=== PATIENT | female | born 1945 | race Caucasian/White ===

== ENCOUNTER 2025-07-17 08:43 | Outpatient (REF) | payer OTHER, SELFPAY | END 2025-07-17 08:44 | disposition home or self-care (01) | LOC: HO.LNP 08:43 | PROVIDERS: PCP Internal Medicine; Visit Provider Obstetrics & Gynecology | DX: N95.0 Postmenopausal bleeding (principal); Z11.51 Encounter for screening for human papillomavirus (HPV) | CPT/HCPCS: 87626; 88175 ==

== ENCOUNTER 2025-07-17 08:43 | Outpatient (AMB) | payer OTHER, SELFPAY ==
--- OUTSIDE RECORDS SUMMARY | 2025-07-17 08:59 | XMS_ITS ---
Author Name [facility] [[email or web address]]P Organization Unknown Care Team Organization Name Specialty Phone Email Start Date End Da te [facility] Ovidio Leung DO Primary Care 09/29/202206/22
--- OUTSIDE RECORDS SUMMARY | 2025-07-17 08:59 | XMS_ITS | Clinical Summary ---
Author Organization [address] Address [address] [place], [place] [address] Phone Care Team Providers Care Caddy Name Role Phone Elizabeth Mcneal MD Primary Care Provider [phone] Allergies No known active allergies Medications lisinopriL (PRINIVIL,ZESTR IL) 20 mg tabletIndicatio ns:Essential hypertension, benign TAKE 1 TABLET (20 MG TOTAL) BY MOUTH ONE TIME EACH DAY 90 tablet 1 06/18/20 25 Active amLODIPine (NORVASC) 5 mg tablet Take 1 tablet (5 mg total) by mouth 1 (one) time each day. 90 tablet 1 06/20/20 25 Active predniSONE (DELTASONE) 20 mg tablet Take 60 mg PO daily for 3 days, then take 40 mg PO daily for 3 days, then 20 mg PO daily for 3 days, then stop 18 tablet 06/20/20 25 Active acetaminophen (Tylenol 8 Hour) 650 mg 8 hr tablet Take 1 tablet (650 mg total) by mouth every 8 (eight) hours if needed for mild pain. Do not crush, chew, or split. 90 tablet 06/20/20 25 Active cyclobenzaprine (FLEXERIL) 5 mg tablet Take 1 tablet (5 mg total) by mouth at bedtime as needed for muscle spasms. 30 tablet 06/20/20 25 025 Active mirtazapine (REMERON) 7.5 mg tabletIndicatio ns:Insomnia, unspecified,Anx iety disorder, unspecified TAKE 1 TABLET BY MOUTH EVERY DAY AT BEDTIME NEEDED FOR INSOMNIA 90 tablet 1 07/10/20 25 Active amLODIPine (NORVASC) 5 mg tablet TAKE 1 TABLET BY MOUTH EVERY DAY 90 tablet 1 12/19/19 25 025 Discontinued(Re order) lisinopriL (PRINIVIL,ZESTR IL) 20 mg tabletIndicatio ns:Essential hypertension, benign Take 1 tablet (20 mg total) by mouth 1 (one) time each day. 90 tablet 1 12/21/19 025 Discontinued mirtazapine (REMERON) 7.5 mg tabletIndicatio ns:Insomnia, unspecified,Anx iety disorder, unspecified Take 1 tablet (7.5 mg total) by mouth at bedtime as needed (insomnia). 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 Remeron was discontinued as patient stopped taking this medication in October 2024. At this point, suicidal ideation does not appear to be a concern, therefore hospitalization will not be necessary and this patient may be treated on an outpatient basis. The patient was instructed to call immediately should the patient experience thoughts of suicide. Patient was advised to call immediately should depression symptoms worsen or should the patient experience suicidal ideation. Diastolic dysfunction 01/30/2019 Overview (10/23/2024): Seen on echo 01/2019 Hypercholesterolemia 01/07/2017 Assessment & Plan (12/27/2024 9:09 AM EST): Last LDL 128. Cardiovascular risk and specific lipid/LDL goals reviewed. I discussed in context of patient risks of coronary artery disease which is associated with total cholesterol, high LDL and low HDL cholesterol. It was also discussed in the context of patient's family history CAD and [place]. I discussed Current concept linking hypercholesteremia with occlusive vascular disease. Discussed the current availability of medications to treat hypercholesteremia, and their potential side effects. The patient is informed that this type of drug is usually highly effective to lower LDL cholesterol and is usually very well tolerated. I will recheck Lipid profile today. If lipid levels are continue to be elevated patient will consider statin at that time. Orders: Lipid panel with reflex to direct LDL; Future Osteopenia 02/22/2013 Overview (10/23/2024): Bone density 02/2013 Macular degeneration 10/06/2011 Essential hypertension, benign 09/13/2006 Overview (10/23/2024): Her machine higher than our reading on 02/13/08 Assessment & Plan (12/27/2024 9:09 AM EST): The goal of therapy is for systolic BP to be <140, diastolic BP <90. Robyn is control. Patient is to Continue amlodipine 5 mg daily and lisinopril 20 mg daily.. Review medication, side effects ans potential future medication changes. She is to call the office if blood pressure more than 140/90, more than a couple of times. Patient is recommended lifestyle changes including 2 g sodium/Dash Diet and regular exercise as tolerated. Orders: lisinopriL (PRINIVIL,ZESTRIL) 20 mg tablet; Take 1 tablet (20 mg total) by mouth 1 (one) time each day. Basic metabolic panel; Future Encounters Date Type Department Care Team Description 06/20/2025 2:45 PM EDT - 06/20/2025 11:59 PM EDT Hospital Encounter [address] [phone] Routine general medical examination at a health care facility; Neck pain Discharge Disposition: Home or Self Care 06/20/2025 2:00 PM EDT Office Visit Adult Medicine [address] [phone] Elizabeth Mcneal MD Routine general medical examination at a health care facility (Primary Dx); Osteopenia, unspecified location; Primary hypertension; Hyperlipidemia, unspecified hyperlipidemia type; Postmenopausal bleeding; Neck pain from Last 3 Months Immunizations Name Administration Dates Next Due Human Rabies, Human Diploid Cell Culture, (Imovax) 07/26/2022,07/19/2022,07/15/2022,07/12 Influenza trivalent, 0.5mL ( Fluad) 65yo and older 08/07/2024,08/20/2023,08/24/2022,08/04,07/09/2020,09/02/2019,09/06/2018 ,08/31/2017 Influenza trivalent, 0.5mL ( Fluzone High-dose) 65yo and older 08/07/2024,07/09/2020,09/02/2019,09/06,08/31/2017,09/14/2016 Influenza trivalent, 0.5mL, preservative free (Fluarix; FluLaval; Fluzone) ages 6mo and older (Afluria) 3 years and older 11/06/2010,08/30/2008 Pfizer (ages 12 & older) Biv alent, COVID-19 08/23/2022 Pfizer SARS-CoV-2 COVID-19, mRNA, LNP-S, preservative free 10/28/2023,08/22/2021 Pneumococcal conjugate 13 va lent (Prevnar 13, PCV13) 2mo and older 02/18/2015 Pneumococcal polysaccharide 23 valent (Pneumovax 23) 2yo and older 02/15/2013 Pneumococcal, Unspecified 07/03/2020 RSV, bivalent, protein subun it RSVpreF, 0.5mL, Preservative Free (Arexvy) 60yo and older 10/11/2023 Respiratory syncytial virus (RSV) vaccine, unspecified 08/05/2023 Respiratory syncytial virus (RSV), unspecified 10/11/2023 Td, Unspecified 07/15/2005 Tdap Tetanus diptheria acell ular pertussis (Boostrix; Adacel) 7yo and older 07/12/2022,06/11/2015 Zoster Live 07/12/2013 Zoster recombinant (Shingrix ) 19yo and older 03/24/2021,12/05/2020 Surgical History Surgery Date Site/Laterality Comments TONSILLECTOMY PROCEDURE: HISTORICAL TONSILLECTOMY BREAST BIOPSY many yrs. ago Right PROCEDURE: BX BREAST; PERC NEEDLE CORE W/IMAG GUID; COMMENT: benign-rt. Medical History Medical History Date Comments Essential hypertension, benign 09/13/2006 D X:Essential hypertension, benign Murmur, heart DX:Murmur, heart Depression DX:Depression Anxiety state DX:Anxiety state Family History Medical History Relation Name Comments Heart failure Father Hypertension Father Other Dermatological Disorders Father Whole back filled with moles Stroke Father Diabetes Mother Heart failure Mother Hypertension Mother Breast cancer Neg Hx Relation Name Status Comments Father (Age 94) Mother (Age 90) Social History Tobacco Use Types Packs/Day Years Used Date Smoking Tobacco: Never Smokeless Tobacco: Never Tobacco Cessation:Counseling Given: Not Answered Alcohol Use Standard Drinks/Week Comments Yes 0 (1 standard drink = 0.6 oz pur e alcohol) Housing Instability Answer Date Recorde d Are you worried that in the next 2 months you may not have stable housing? No 06/15/2025 Food Access & Nutrition Answer Date Rec orded Do you have access to a vari ety of food including fruits and vegetables? Yes 06/15/2025 Access to Healthcare Answer Date Record ed Within the last 3 months, ho w many times did you visit the emergency department for your medical care? 0 06/15/2025 Health Literacy Answer Date Recorded How often do you need to hav e someone help you when you read instructions, pamphlets, or other written material from your doctor or pharmacy? Never 06/15/2025 Caregiver: How often do you need to have someone help you when you read instructions, pamphlets, or other written material from your doctor or pharmacy? Not on file 06/15/2025 Financial Risk Answer Date Recorded How hard is it for you to pa y for the very basics like food, housing, medical care, and air conditioning / heating? Very hard 06/15/2025 Transportation Answer Date Recorded Has the lack of transportati on kept you from meetings, work, or from getting things needed for daily living? No Has the lack of transportati on kept you from medical appointments or from getting medications? No 06/15/2025 Social Isolation Answer Date Recorded How often do you feel lonely or isolated from th ose around you? Never 06/15/2025 Food Risk Answer Date Recorded Within the past 12 months we worried whether our food would run out before we got money to buy more. Never true 06/15/2025 Within the past 12 months th e food we bought just didn't last and we didn't have money to get more. Never true 06/15/2025 Dependent Care Answer Date Recorded Do you need help finding or paying for care for your loved ones. For example, school childcare attendant or elderly care for an older adult? No 06/15/2025 Education Answer Date Recorded Do you think completing more education or training, like finishing a GED, going to college, or learning a trade, would be helpful for you? No 06/15/2025 Employment and Income Answer Date Recor ded During the last four weeks, have you been actively looking for work? No 06/15/2025 Living Situation Answer Date Recorded What is your living situation? 0 06/15/2025 Comments No Sex and Gender Information Value Date Recorded Sex Assigned at Not on file Legal Sex Female 9:27 AM EST Gender Identity Not on file Sexual Orientation Not on file Obstetrics History Para Term AB IAB SAB Ectopic Multiple Livin g Live Births 1 1 1 1 Date Outcome GA Total Labor Labor/2nd/3rd Weight Sex Type Anes PTL Ju A1 A5 Name Clin Term Last Filed Vital Signs Vital Sign Reading Time Taken Comments Blood Pressure 162/70 06/20/2025 1:41 PM EDT Pulse 88 06/20/2025 1:41 PM EDT Temperature 36.6 C (97.8 F) 06/20/2025 1:41 PM EDT Respiratory Rate 20 04/02/2025 2:16 PM EDT Oxygen Saturation - - Inhaled Oxygen Concentration - - Weight 83.9 kg (185 lb) 06/20/2025 1:41 PM EDT Height 160 cm (5' 3 ) 06/20/2025 1:41 PM EDT Body Mass Index 32.77 06/20/2025 1:41 PM EDT Plan of Treatment Upcoming Encounters Date Type Department Care Team (Late st Contact Info) Description 12/25/2025 9:30 AM EST Office Visit Adult [address] [phone] Elizabeth Mcneal MD [address] [place] [id number] 06/27/2026 3:00 PM EDT Office Visit Adult [address] [phone] Elizabeth Mcneal MD [address] [place] [address] Health Maintenance Due Date Last Done Comments Influenza Vaccine (#1) 2025 , 08/07/2024, 08/20/2023, Additional history exists Hypertension/CHF/CAD Annual BMP Blood Test 01/01/2026 01/01/2025, 04/20/2024, 04/20/2024 Social Influencers of Health Screening 06/15/2026 06/15/2025 Falls Risk Assessment 06/20/2026 06/20/2025 Medicare Annual Wellness Visit 06/20/2026 06/20/2025 Osteoporosis Screening (Bone Density Screening) 07/31/2029 07/31/2024, 08/26/2018 Cholesterol Screening (Lipid Panel) 01/01/2030 01/01/2025, 11/25/2023 DTaP,Tdap,and Td Vaccines (4 - Td or Tdap) 07/12/2032 07/12/2022, 06/11/2015, 07/15/2005 Hepatitis C Screening Completed 06/13/2015 Pneumococcal Vaccine: 50+ Years Completed 07/03/2020, 02/18/2015, 02/15/2013 Zoster Vaccines Completed 03/24/2021, 11/22, 07/12/2013 Colorectal Cancer Screening: Stool Based Tests (FOBT/FIT) Discontinued 03/09/2023 RSV Immunization Adult Patients Completed 10/11/2023, 10/11/2023, 08/05/2023 RSV Immunization Patients Under 20 months Aged Out 10/11/2023, 08/05/2023 No longer eligibl e based on patient's age to complete this topic COVID-19 Vaccine Discontinued 10/28/2023, 12/2021, 08/22/2021, Additional history exists Depression Screening Completed 06/15/2025 HIB Vaccines Aged Out No longer eligi ble based on patient's age to complete this topic HPV Vaccines Aged Out No longer eligi ble based on patient's age to complete this topic Hepatitis A Vaccines Aged Out No long er eligible based on patient's age to complete this topic Hepatitis B Vaccines Aged Out No long er eligible based on patient's age to complete this topic IPV Vaccines Aged Out No longer eligi ble based on patient's age to complete this topic MMR Vaccines Aged Out No longer eligi ble based on patient's age to complete this topic Meningococcal ACWY Vaccine Aged Out N o longer eligible based on patient's age to complete this topic Meningococcal B Vaccine Aged Out No l onger eligible based on patient's age to complete this topic Varicella Vaccines Aged Out No longer eligible based on patient's age to complete this topic Procedures Procedure Name Priority Date/Time Associated Diagnosis Comments XR CERVICAL SPINE 4-5 VIEWS Routine 06/20/2025 2:53 PM EDT Routine general medical examination at a [facility] care facility Neck pain BASIC METABOLIC PANEL Routine 01/01/2025 8:40 AM EST Essential hypertension, benign LIPID PANEL WITH REFLEX TO DIRECT LDL Routine 01/01/2025 8:40 AM EST Hypercholesterolemia Encounter for screening for cardiovascular disorders [facility] DEXA AXIAL SKELETON Routine 07/31/2024 8:31 AM EDT Other specified disorders of bone density and structure, other site STOOL BASED TEST Routine 03/09/2023 HEPATITIS C SCREENING Routine 06/13/2015 from Last 3 Months or Most Recently Relevant to Health Maintenance Results * XR Cervical Spine 4-5 Views (06/20/2025 2:53 PM EDT) Anatomical Region Laterality Modality Spine, C-spine Radiographic Cornelia ging 06/21/2025 9:15 AM EDT Impressions 06/21/2025 9:22 AM EDT Degenerative changes as described. Slight retrolisthesis of C5 relative to C4 and C6. -------- FINAL REPORT -------- Dictated By: Sheila Bailey Dictated Date: 06/21/2025 09:15 ET Assigned Physician: Sheila Bailey Reviewed and Electronically Signed By: Sheila Bailey Signed Date: 06/21/2025 09:22 ET Workstation ID: [id number] Transcribed By: Self Edit Transcribed Date: 06/21/2025 09:17 ET Narrative 06/21/2025 9:22 AM EDT CERVICAL SPINE, 4 VIEWS HISTORY: Neck pain. FINDINGS: There is slight retrolisthesis of C5 relative to both C4 and C6. No fracture or dislocation is seen. The paravertebral soft tissues are unremarkable. There is disc space narrowing with endplate spurring at C4-5, C5-C6, and C6-7. There is mild endplate spurring at C2-3 and C3-4. There is bilateral neural foraminal narrowing from osteophytes. There is multilevel facet hypertrophy. Procedure Note Sheila Bailey MD - 06/21/2025 CERVICAL SPINE, 4 VIEWS HISTORY: Neck pain. FINDINGS: There is slight retrolisthesis of C5 relative to both C4 and C6. Nofracture or dislocation is seen. The paravertebral soft tissues areunremarkable. There is disc space narrowing with endplate spurring at C4-5, C5-C6, andC6-7. There is mild endplate spurring at C2-3 and C3-4. There is bilateral neural foraminal narrowing from osteophytes. There is multilevel facet hypertrophy. IMPRESSION: Degenerative changes as described. Slight retrolisthesis of C5 relative to C4 and C6. -------- FINAL REPORT -------- Dictated By: Sheila Bailey Dictated Date: 06/21/2025 09:15 ET Assigned Physician: Sheila Bailey Reviewed and Electronically Signed By: Sheila Bailey Signed Date: 06/21/2025 09:22 ET Workstation ID: [id number] Transcribed By: Self Edit Transcribed Date: 06/21/2025 09:17 ET us Elizabeth Mcneal MD IMG XR PROCEDURES Final Res ult * (ABNORMAL) Lipid panel with reflex to direct LDL (01/01/2025 8:40 AM EST) Cholesterol 211(H) 0 - 200 mg/dL LAB CHEMISTRY METHOD 01/01/2025 12:20 PM EST [facility] Triglycerides 120 0 - 150 mg/dL LAB CHEMISTRY METHOD 01/01/2025 12:20 PM [facility] HDL 64 >=40 mg/dL LAB CHEMISTRY METHOD 01/01/2025 12:20 PM [facility] LDL Calculated 123(H) 0 - 100 mg/dL LAB CHEMISTRY METHOD 01/01/2025 12:20 PM [facility] VLDL Cholesterol Darren 24 mg/dL LAB CHEMISTRY METHOD 01/01/2025 12:20 PM [facility] Non HDL Chol. (LDL+VLDL) 147(H) <145 mg/dL LAB CHEMISTRY METHOD 01/01/2025 12:20 PM [facility] Chol/HDL Ratio 3.3 0.0 - 4.4 LAB CHEMISTRY METHOD 01/01/2025 12:20 PM [facility] Blood Venous blood specimen / Unknown Venipuncture / Unknown 01/01/2025 8:40 AM EST 01/01/2025 8:40 AM EST us Roxane Savage SKI LIFT OPERATOR LAB BLOOD ORDERABLES Final R esult [facility] [address] [place] [address], * Basic metabolic panel (01/01/2025 8:40 AM EST) Sodium 139 133 - 145 mmol/L LAB CHEMISTRY METHOD 01/01/2025 12:19 PM [facility] Potassium 4.5 3.5 - 5.5 mmol/L LAB CHEMISTRY METHOD 01/01/2025 12:19 PM [facility] Chloride 106 96 - 110 mmol/L LAB CHEMISTRY METHOD 01/01/2025 12:19 PM [facility] CO2 27 21 - 32 mmol/L LAB CHEMISTRY METHOD 01/01/2025 12:19 PM [facility] Anion Gap 6 3 - 11 LAB CHEMISTRY METHOD 01/01/2025 12:19 PM [facility] Glucose 95 70 - 100 mg/dL LAB CHEMISTRY METHOD 01/01/2025 12:19 PM [facility] BUN 18 5 - 25 mg/dL LAB CHEMISTRY METHOD 01/01/2025 12:19 PM [facility] Creatinine 0.69 0.50 - 1.10 mg/dL LAB CHEMISTRY METHOD 01/01/2025 12:19 PM [facility] eGFR 90 >=60 mL/min/1. 73m2 LAB CHEMISTRY METHOD 01/01/2025 12:19 PM [facility] Comment:Calculation based on the Chronic Kidney Disease Epidemiology Collaboration (CKD-EPI) equation refit without adjustment for race. BUN/Creatinine Ratio 26.1 LAB CHEMISTRY METHOD 01/01/2025 12:19 PM [facility] Calcium 9.3 8.5 - 10.5 mg/dL LAB CHEMISTRY METHOD 01/01/2025 12:19 PM [facility] Blood Venous blood specimen / Unknown Venipuncture / Unknown 01/01/2025 8:40 AM EST 01/01/2025 8:40 AM EST us Roxane Savage SKI LIFT OPERATOR LAB BLOOD ORDERABLES Final R esult [facility] [address] [place] [address], * TRISTAN DEXA AXIAL SKELETON (07/31/2024 8:31 AM EDT) Anatomical Region Laterality Modality Mammography 07/31/2024 7:39 AM EDT Narrative 07/31/2024 8:31 AM EDT [facility] Diagnostic Imaging Department [address] [place] [address] Patient: ROBYN GOMEZ /Age/Sex: 1945 - 79 - F Unit#: [id number] Location/Status: SPDIMAM/REG CLI Mnemonic/Ordering Site: MAMDEXAAX/SPMAM Ordering Physician: RIN RAGSDALE PA-C Tristan Dexa Axial Skeleton - 07/31/24818 Report Status:Signed HISTORY: The patient is a 79-year-old postmenopausal female with clinical concern for metabolic bone disease. FINDINGS: Dual energy x-ray absorptiometry of the lumbar spine and femurs is performed. The mean bone mineral density at L1-L4 is 1.144 gm/cm2 which is 97% of that of young normals and 110% of that of age matched controls. This yields a T-score of -0.3 and a Z-score of 0.1 and there is therefore no evidence of osteoporosis or osteopenia here. The mean bone mineral density of the femurs bilaterally is 1.040 gm/cm2 which is 103% of that of young normals and 125% of that of age matched controls. This yields a T-score of 0.3 and a Z-score of 1.6 and there is therefore no evidence of osteoporosis or osteopenia here. However, the T-score of the right femoral neck is -1.1 which is diagnostic of osteopenia. IMPRESSION: 1. Osteopenia. 2. FRAX analysis yields a 10-year probability of major osteoporotic fracture of 10.4% and a 10-year probability of hip fracture of 1.8%. Code 09011 Dictating Physician: MAURO HAMMOND MD Electronically Signed by: MAURO HAMMOND MD Dic Date/Time: 07/31/24829 Sign date/Time: 07/31/24830 Procedure Note Mauro Hammond MD - 09/06/2024 [facility] Diagnostic Imaging Department [address] [place] [id number] Patient: ROBYN GOMEZ Amirah Rebolledo/Age/Sex: 1945 79 - F Unit#: [id number] Location/Status: [facility] CLI Mnemonic/Ordering Site: [facility] Ordering Physician: RIN RAGSDALE PA-C Tristan Dexa Axial Skeleton - 07/31/24818 Report Status:Signed HISTORY: The patient is a 79-year-old postmenopausal female withclinical concern for metabolic bone disease. FINDINGS: Dual energy x-ray absorptiometry of the lumbar spine and femursis performed. The mean bone mineral density at L1-L4 is 1.144 gm/cm2 which is97% of that of young normals and 110% of that of age matched controls. Thisyields a T-score of -0.3 and a Z-score of 0.1 and there is therefore no evidenceof osteoporosis or osteopenia here. The mean bone mineral density of the femurs bilaterally is 1.040 gm/xa2vtpul is 103% of that of young normals and 125% of that of age matched controls.This yields a T-score of 0.3 and a Z-score of 1.6 and there is therefore noevidence of osteoporosis or osteopenia here. However, the T-score of the rightfemoral neck is -1.1 which is diagnostic of osteopenia. IMPRESSION: 1. Osteopenia. 2. FRAX analysis yields a 10-year probability of major osteoporoticfracture of 10.4% and a 10-year probability of hip fracture of 1.8%. Code 20181 Dictating Physician: MAURO HAMMOND MD Electronically Signed by: MAURO HAMMOND MD Dic Date/Time: 07/31/24829 Sign date/Time: 07/31/24830 Rin HORNER IMG BI PROCEDURES Fin al Result * Stool Based Tests (FOBT/FIT) (03/09/2023) [facility] Colorectal Cancer Screening: Stool Based Tests No interpretation , abstracted Historical Provider HEALTH MAINTENANCE Final Result * Hepatitis C Screening (06/13/2015) [facility] Hepatitis C Screening abstracted Result [facility] Provider HEALTH MAINTENANCE Final Result from Last 3 Months or Most Recently Relevant to Health Maintenance Insurance [employer] [place] [employer] Care Teams Caddy Relationship Specialty Start Date End Date Elizabeth Mcneal MD [phone] [place] [address] PCP - General Internal Medicine 12/14/24
--- NOTE | 2025-07-17 09:02 | MHC.OFFVIS ---
Vital Signs 07/17/25 09:04 Height 5 ft 3 in Weight 183 lb BMI 32.4 BP 144/80 H Intake Visit Reasons: PMB Control Board Operator Required: No Greenskeeper Head: Greenskeeper Head Present (hilario) Accompanied by: Spouse Allergies bee pollen (bees) Allergy (Mild, Verified 07/17/25 09:05) Swelling Post menopausal: Yes HPI Comments Details: Presenting after 3 episode of vaginal bleeding that started 04/14 recurred in 04/15 and last week. [facility] Medical History Hypertension Social History Household Members: Spouse Housing: House Alcohol intake: current Comment: socially Patient Tobacco Use Status: Never used Tobacco Current occupational status: retired Sexual orientation: Straight/Heterosexual Gender identity: Female Female Reproductive History Menstrual Age of Menarche: 15 control method: none Menopause type: natural Total pregnancies: 1 Full term: 1 History of abnormal pap smear: No History of abnormal mammogram: No Review of Systems Const All systems reviewed & are unremarkable except as noted in HPI and below Physical Exam Vital Signs: Last Vital Signs BP 144/80 H 07/17/25 09:04 BMI result Body Mass Index 32.4 General: Yes no CVA tenderness External Female Exam: normal external appearance and normal appearance of the urethra Speculum Exam - Vagina: normal appearance of the vagina, normal palpation, no lesions and no masses Speculum Exam - Cervix: normal appearance of the cervix, normal palpation, no lesions, no masses and nontender Bimanual exam- vagina & uterus: normal bimanual exam, normal palpation, uterine size normal, normal palpation, uterine shape normal, No Cervical tenderness present and non-tender Bimanual Exam- Adnexa, other: normal adnexae Back/Spine/Pelvis Back: no CVA tenderness Assessment & Plan Assessment & Plan (1) Postmenopausal bleeding: Code(s): N95.0 - Postmenopausal bleeding Category: Medical Plan: Discussed with the patient the differential diagnosis of post menopausal bleeding with normal pelvic exam including but not limited to, endometrial hyperplasia, cancer, polyps and other causes; co testing done, recommended ultrasound to measure the endometrial stripe; discussed with the patient that if the endometrial thickness is 4 mm or less the negative predictive value of endometrial pathology is 99%, otherwise If endometrial thickness is more than 4 mm will proceed with endometrial sampling versus hysteroscopy D&C polypectomy depending on the ultrasound findings. Instructed the patient to schedule an ultrasound with a follow-up appointment in 2 weeks. All questions answered, the patient verbalized understanding and agreed with the plan. This note was generated with a voice recognition program. Some errors may have been overlooked during the review of this note. Sometimes these errors may affect the content or meaning of a given sentence. Orders: Orders US pelvic and transvaginal Today N95.0 - Postmenopausal bleeding Coding Level of Care Code New Pt Level 3 (89787) Diagnoses Postmenopausal bleeding N95.0
[2025-07-17 09:04] VITALS: BP 144/80; BMI 32.4
== END 2025-07-17 09:37 | disposition home or self-care (01) ==
LOC: HO.HWS 08:44
PROVIDERS: PCP Internal Medicine; Visit Provider Obstetrics & Gynecology
DX: N95.0 Postmenopausal bleeding (principal)
CPT/HCPCS: 99203

== ENCOUNTER 2025-07-20 09:03 | Outpatient (REF) | payer OTHER, SELFPAY ==
--- NOTE | ~2025-07-20 | US_ITS ---
EXAMINATION: US PELVIS CLINICAL INFORMATION: Postmenopausal bleeding. COMPARISON: No prior. TECHNIQUE: Ultrasound of the pelvis is performed using both transabdominal and transvaginal transducers along with Doppler. Transvaginal imaging is performed due to inadequate visualization transabdominally. FINDINGS: Uterus: The uterus is anteverted and measures 6.9 x 2.5 x 4.1 cm. The cervix has a normal appearance. There are nabothian cysts present. The double wall endometrial thickness is 15 mm. It is diffusely thickened. The uterus is smooth in contour and has normal myometrial echogenicity. No visible fibroid. Adnexa: Ovaries could not be visualized. There is no pelvic ascites or fluid collection. There are no adnexal masses present. US/US pelvic and transvaginal IMPRESSION: 1. Diffusely abnormally thickened endometrial stripe at 15 mm. 2. Otherwise normal-appearing uterus and myometrium. 3. Cervix appears normal with nabothian cysts present. 4. Ovaries could not be definitively seen. No adnexal masses present. No free fluid evident. Electronically signed by: Morteza Lei MD 07/20/2025 10:05 AM EDT
--- OUTSIDE RECORDS SUMMARY | 2025-07-20 09:56 | XMS_ITS | Clinical Summary ---
Author Organization [address] Address [address] [place] [address] [place], [place] Phone Care Team Providers Care Tower Cleaner Name Role Phone Elizabeth Mcneal MD Primary Care Provider [phone] Allergies No known active allergies Medications lisinopriL [...] INSOMNIA 90 tablet 1 07/10/20 25 Active mirtazapine (REMERON) 7.5 mg tabletIndicatio ns:Insomnia, [...] context of patient's family history CAD and [place]. I discussed Current concept linking hypercholesteremia with [...] - 06/20/2025 11:59 PM EDT Hospital Encounter [address] [phone] Routine general medical examination at a health care facility; Neck pain Discharge Disposition: Home or Self Care 06/20/2025 2:00 PM EDT Office Visit Adult Medicine [address] [phone] Elizabeth Mcneal MD Routine general medical examination [...] care for your loved ones. For example, child development specialist or elderly care for an older adult? [...] 12/25/2025 9:30 AM EST Office Visit Adult Medicine [address] [phone] Elizabeth Mcneal MD [address] [place], [place] 06/27/2026 3:00 PM EDT Office Visit Adult [address] [phone] Elizabeth Mcneal MD [address] [place], [place] Health Maintenance Due Date Last Done Comments [...] EDT Routine general medical examination at a health care facility Neck pain BASIC METABOLIC PANEL Routine 01/01/2025 8:40 AM EST Essential hypertension, benign LIPID PANEL WITH REFLEX TO DIRECT LDL Routine 01/01/2025 8:40 AM EST Hypercholesterolemia Encounter for screening for cardiovascular disorders [facility] DEXA AXIAL SKELETON Routine 07/31/2024 8:31 AM [...] Signed Date: 06/21/2025 09:22 ET Workstation ID: [id number] Transcribed By: Self Edit Transcribed Date: 06/21/2025 [...] Signed Date: 06/21/2025 09:22 ET Workstation ID: [id number] Transcribed By: Self Edit Transcribed Date: 06/21/2025 09:17 ET us Elizabeth Mcneal MD IMG XR PROCEDURES Final Res ult * (ABNORMAL) Lipid panel with reflex to direct LDL (01/01/2025 8:40 AM EST) Cholesterol 211(H) 0 - 200 mg/dL LAB CHEMISTRY METHOD 01/01/2025 12:20 PM EST [facility] Triglycerides 120 0 - 150 mg/dL LAB CHEMISTRY METHOD 01/01/2025 12:20 PM EST [facility] HDL 64 >=40 mg/dL LAB CHEMISTRY METHOD 01/01/2025 12:20 PM EST [facility] LDL Calculated 123(H) 0 - 100 mg/dL LAB CHEMISTRY METHOD 01/01/2025 12:20 PM [facility] VLDL Cholesterol Darren 24 mg/dL LAB CHEMISTRY METHOD 01/01/2025 12:20 PM [facility] Non HDL Chol. (LDL+VLDL) 147(H) <145 mg/dL LAB CHEMISTRY METHOD 01/01/2025 12:20 PM [facility] Chol/HDL Ratio 3.3 0.0 - 4.4 LAB CHEMISTRY METHOD 01/01/2025 12:20 PM [facility] Blood Venous blood specimen / Unknown Venipuncture / Unknown 01/01/2025 8:40 AM EST 01/01/2025 8:40 AM EST Roxane Savage [employer] LAB BLOOD ORDERABLES Final R esult [facility] [address] [place] [address], * Basic metabolic panel (01/01/2025 8:40 AM EST) Sodium 139 133 - 145 mmol/L LAB CHEMISTRY METHOD 01/01/2025 12:19 PM [facility] Potassium 4.5 3.5 - 5.5 mmol/L LAB CHEMISTRY METHOD 01/01/2025 12:19 PM [facility] Chloride 106 96 - 110 mmol/L LAB CHEMISTRY METHOD 01/01/2025 12:19 PM [facility] CO2 27 21 - 32 mmol/L LAB CHEMISTRY METHOD 01/01/2025 12:19 PM [facility] Anion Gap 6 3 - 11 LAB CHEMISTRY METHOD 01/01/2025 12:19 PM [facility] Glucose 95 70 - 100 mg/dL LAB CHEMISTRY METHOD 01/01/2025 12:19 PM [facility] BUN 18 5 - 25 mg/dL LAB CHEMISTRY METHOD 01/01/2025 12:19 PM [facility] Creatinine 0.69 0.50 - 1.10 mg/dL LAB CHEMISTRY METHOD 01/01/2025 12:19 PM EST [facility] eGFR 90 >=60 mL/min/1. 73m2 LAB CHEMISTRY METHOD 01/01/2025 12:19 PM EST [facility] Comment:Calculation based on the Chronic Kidney Disease Epidemiology Collaboration (CKD-EPI) equation refit without adjustment for race. BUN/Creatinine Ratio 26.1 LAB CHEMISTRY METHOD 01/01/2025 12:19 PM EST [facility] Calcium 9.3 8.5 - 10.5 mg/dL LAB CHEMISTRY METHOD 01/01/2025 12:19 PM EST [facility] Blood Venous blood specimen / Unknown Venipuncture / Unknown 01/01/2025 8:40 AM EST 01/01/2025 8:40 AM EST Roxane Savage [employer] LAB BLOOD ORDERABLES Final R esult [facility] [address] [place] [address], * TRISTAN DEXA AXIAL SKELETON (07/31/2024 8:31 AM EDT) Anatomical Region Laterality Modality Mammography 07/31/2024 7:39 AM EDT Narrative 07/31/2024 8:31 AM EDT [facility] Diagnostic Imaging Department [address] [place] [address] Patient: GOMEZROBYN./Age/Sex: 1945 - 79 - F Unit#: [id number] Location/Status: SPDIMAM/REG CLI [facility] Ordering Physician: RIN RAGSDALE PA-C Tristan Dexa Axial Skeleton - 07/31/24 - 818 Report Status:Signed HISTORY: The patient is a [...] probability of hip fracture of 1.8%. Code 47348 Dictating Physician: MAURO HAMMOND MD Electronically Signed by: MAURO HAMMOND MD Dic Date/Time: 07/31/24829 Sign date/Time: 07/31/24830 Procedure Note Mauro Hammond MD - 09/06/2024 [facility] Diagnostic Imaging Department [address] [place] [address] Patient: ROBYN GOMEZ /Age/Sex: 1945 - 79 - F Unit#: [id number] Location/Status: SPDIMA/REG CLI Mnemonic/Ordering Site: [facility] Ordering Physician: RIN RAGSDALE PA-C Tristan Dexa Axial Skeleton - 07/31/24 - 818 Report Status:Signed HISTORY: The patient is a [...] density of the femurs bilaterally is 1.040 gm/yn5nlvsd is 103% of that of young normals [...] probability of hip fracture of 1.8%. Code 92042 Dictating Physician: MAURO HAMMOND MD Electronically Signed by: MAURO HAMMOND MD Dic Date/Time: 07/31/24 0830 Sign date/Time: 07/31/24 0831 Rin HORNER IMG BI PROCEDURES Fin al Result * Stool Based Tests (FOBT/FIT) (03/09/2023) [facility] Colorectal Cancer Screening: Stool Based Tests No interpretation , abstracted Historical Provider HEALTH MAINTENANCE Final Result * Hepatitis C Screening (06/13/2015) [facility] Hepatitis C Screening abstracted Historical Provider HEALTH MAINTENANCE Final Result from Last 3 Months or Most Recently Relevant to Health Maintenance Insurance [employer] Care Teams Tower Cleaner Relationship Specialty Start Date End Date Elizabeth Mcneal MD [address] [place] [address] PCP - General Internal Medicine 12/14/24
== END 2025-07-20 09:04 | disposition home or self-care (01) ==
LOC: HO.US 09:03
PROVIDERS: PCP Internal Medicine; Visit Provider Obstetrics & Gynecology
DX: N95.0 Postmenopausal bleeding (principal)
CPT/HCPCS: 76830; 76856

== ENCOUNTER → 2025-07-20 09:09 | Outpatient (BNV) | payer OTHER, SELFPAY | PROVIDERS: PCP Internal Medicine; Visit Provider Radiology Diagnostic Radiology | DX: N95.0 Postmenopausal bleeding (principal); N88.8 Other specified noninflammatory disorders of cervix uteri | CPT/HCPCS: 76830; 76856 ==

== ENCOUNTER 2025-07-24 12:50 | Outpatient (REF) | payer OTHER, SELFPAY | END 2025-07-24 12:51 | disposition home or self-care (01) | LOC: HO.LNP 12:50 | PROVIDERS: PCP Internal Medicine; Visit Provider Obstetrics & Gynecology | DX: N95.0 Postmenopausal bleeding (principal) | CPT/HCPCS: 58100; 88305 ==

== ENCOUNTER 2025-07-24 12:50 | Outpatient (AMB) | payer OTHER, SELFPAY ==
--- NOTE | 2025-07-24 12:52 | MHC.OFFVIS ---
Intake Visit Reasons: US results Allergies bee pollen (bees) Allergy (Mild, Verified 07/17/25 09:05) Swelling HPI Comments Details: Presenting for ultrasound follow-up regarding postmenopausal bleeding. Ultrasound done on 07/20/2026 showed the following: Uterus: The uterus is anteverted and measures 6.9 x 2.5 x 4.1 cm. The cervix has a normal appearance. There are nabothian cysts present. The double wall endometrial thickness is 15 mm. It is diffusely thickened. The uterus is smooth in contour and has normal myometrial echogenicity. No visible fibroid. Adnexa: Ovaries could not be visualized. There is no pelvic ascites or fluid collection. There are no adnexal masses present. [facility] Medical History Hypertension Social History Household Members: Spouse Housing: House Alcohol intake: current Comment: socially Patient Tobacco Use Status: Never used Tobacco Current occupational status: retired Sexual orientation: Straight/Heterosexual Gender identity: Female Female Reproductive History Menstrual Age of Menarche: 15 Review of Systems Const All systems reviewed & are unremarkable except as noted in HPI and below Reports as per HPI and Reports no additional complaints GI Reports no additional complaints Reports no additional complaints Office Procedures Endometrial Biopsy Details: The patient was counseled regarding the indication and benefits of endometrial sampling to rule out endometrial pathology including not limited to endometrial hyperplasia or endometrial cancer and others; The alternatives (Either do nothing vs. hysteroscopy D&C) & the risks were discussed with the patient including but not limited: pain, uterine perforation, bleeding, infection, possible injury to bladder, bowel, ureter, possible need for blood transfusion with all its possible risks. The patient verbalized understanding all questions answered and signed consent. The patient was placed into the dorsal lithotomy position; a speculum was inserted in the vagina. Using aseptic technique for the procedure, the cervix was cleansed with Betadine. The anterior lip of the cervix was grasped with a single tooth tenaculum. The uterus was sounded to 7 cm with a 4 mm Pipelle was used. Tissues samples were obtained and placed in formalin, in a patient labeled container and sent to the pathology department. At the end of the procedure, there was minimal bleeding noted The patient tolerated the procedure well and was discharged in good condition with the following instructions: Nothing in the vagina until the bleeding stops. No sex until the bleeding stops, to call if any of the following occurs: fever (>100.4), flu-like symptoms, abdominal pain, heavy bleeding, four smelling vaginal discharge. The patient was instructed to schedule a Follow up appointment in 2 weeks to discuss pathology results of the biopsy and treatment options. This note was generated with a voice recognition program. Some errors may have been overlooked during the review of this note. Sometimes these errors may affect the content or meaning of a given sentence. [id number] Biopsy Assessment & Plan Assessment & Plan (1) Postmenopausal bleeding: Code(s): N95.0 - Postmenopausal bleeding Category: Medical Plan: Discussed with the patient the pelvic ultrasound findings, the endometrial stripe thickenss measured by ultrasound was more than 4mm. The negative predictive value, positive predictive value, Sensitivity, specificity of using ultrasound measurement of endometrial stripe to detecting endometrial pathology including hyperplasia , polyp or cancer were discussed with the patient. Recommended to the patient that the next step is an endometrial sampling via hysteroscopy D&C possible polypectomy versus endometrial biopsy to r/o endometrial pathology including hyperplasia or cancer. All the pros and cons risks and benefits of each approach were discussed with the patient, endometrial biopsy being less invasive, office procedure with less sensitivity and inability diagnose a polyp and removal versus hysteroscopy done under anesthesia more invasive more sensitive to endometrial cancer and possibility of diagnosing and endometrial polyp with the possibility of polypectomy. All questions were answered pt verbalized understanding and decided to proceed with endometrial biopsy. EMB done, see procedure note Orders: Orders AMB Endometrial Biopsy Today N95.0 - Postmenopausal bleeding Coding Level of Care Code Procedure Only Diagnoses Postmenopausal bleeding N95.0 CPT Codes Endometrial Biopsy - CPT: 38602-[id number] Biopsy ([id number])
--- OUTSIDE RECORDS SUMMARY | 2025-07-24 14:03 | XMS_ITS | Clinical Summary ---
Author Organization [address] Address [address] [place], [place] [address] MD Phone Care Team Providers Care Flatcar Whacker Name Role Phone Elizabeth Mcneal MD Primary Care Provider [phone] Allergies No known active allergies Medications lisinopriL [...] context of patient's family history CAD and PR. I discussed Current concept linking hypercholesteremia with [...] - 06/20/2025 11:59 PM EDT Hospital Encounter [address] [phone] Routine general medical examination at a health care facility; Neck pain Discharge Disposition: Home or Self Care 06/20/2025 2:00 PM EDT Office Visit Adult Medicine [address] [phone] Elizabeth Mcneal MD Routine general medical examination [...] for your loved ones. For example, child caregiver private home or elderly care for an older adult? [...] 9:30 AM EST Office Visit Adult Medicine [address] [phone] Elizabeth Mcneal MD [address] [place], [place] 06/27/2026 3:00 PM EDT Office Visit Adult [address] [phone] Elizabeth Mcneal MD [address] [place], [place] Health Maintenance Due Date Last Done [...] Hypercholesterolemia Encounter for screening for cardiovascular disorders [facility] DEXA AXIAL SKELETON Routine 07/31/2024 8:31 AM [...] Signed Date: 06/21/2025 09:22 ET Workstation ID: [id number] Transcribed By: Self Edit Transcribed Date: 06/21/2025 [...] Signed Date: 06/21/2025 09:22 ET Workstation ID: [id number] Transcribed By: Self Edit Transcribed Date: 06/21/2025 09:17 ET us Elizabeth Mcneal MD IMG XR PROCEDURES Final Res ult * (ABNORMAL) Lipid panel with reflex to direct LDL (01/01/2025 8:40 AM EST) Cholesterol 211(H) 0 - 200 mg/dL LAB CHEMISTRY METHOD 01/01/2025 12:20 PM EST [facility] Triglycerides 120 0 - 150 mg/dL LAB CHEMISTRY METHOD 01/01/2025 12:20 PM EST [facility] HDL 64 >=40 mg/dL LAB CHEMISTRY METHOD 01/01/2025 12:20 PM EST [facility] LDL Calculated 123(H) 0 - 100 mg/dL LAB CHEMISTRY METHOD 01/01/2025 12:20 PM [facility] VLDL Cholesterol Darren 24 mg/dL LAB CHEMISTRY METHOD 01/01/2025 12:20 PM [facility] Non HDL Chol. (LDL+VLDL) 147(H) <145 mg/dL LAB CHEMISTRY METHOD 01/01/2025 12:20 PM [facility] Chol/HDL Ratio 3.3 0.0 - 4.4 LAB CHEMISTRY METHOD 01/01/2025 12:20 PM [facility] Blood Venous blood specimen / Unknown Venipuncture / Unknown 01/01/2025 8:40 AM EST 01/01/2025 8:40 AM EST Roxane Savage [employer] LAB BLOOD ORDERABLES Final R esult [facility] [address] [place] [address], * Basic metabolic panel (01/01/2025 8:40 AM EST) Sodium 139 133 - 145 mmol/L LAB CHEMISTRY METHOD 01/01/2025 12:19 PM [facility] Potassium 4.5 3.5 - 5.5 mmol/L LAB CHEMISTRY METHOD 01/01/2025 12:19 PM [facility] Chloride 106 96 - 110 mmol/L LAB CHEMISTRY METHOD 01/01/2025 12:19 PM [facility] CO2 27 21 - 32 mmol/L LAB CHEMISTRY METHOD 01/01/2025 12:19 PM [facility] Anion Gap 6 3 - 11 LAB CHEMISTRY METHOD 01/01/2025 12:19 PM [facility] Glucose 95 70 - 100 mg/dL LAB CHEMISTRY METHOD 01/01/2025 12:19 PM [facility] BUN 18 5 - 25 mg/dL LAB CHEMISTRY METHOD 01/01/2025 12:19 PM [facility] Creatinine 0.69 0.50 - 1.10 mg/dL LAB CHEMISTRY METHOD 01/01/2025 12:19 PM EST [facility] eGFR 90 >=60 mL/min/1. 73m2 LAB CHEMISTRY METHOD 01/01/2025 12:19 PM EST [facility] Comment:Calculation based on the Chronic Kidney Disease Epidemiology Collaboration (CKD-EPI) equation refit without adjustment for race. BUN/Creatinine Ratio 26.1 LAB CHEMISTRY METHOD 01/01/2025 12:19 PM EST [facility] Calcium 9.3 8.5 - 10.5 mg/dL LAB CHEMISTRY METHOD 01/01/2025 12:19 PM EST [facility] Blood Venous blood specimen / Unknown Venipuncture / Unknown 01/01/2025 8:40 AM EST 01/01/2025 8:40 AM EST Roxane Savage [employer] LAB BLOOD ORDERABLES Final R esult [facility] [address] [place] [address], * TRISTAN DEXA AXIAL SKELETON (07/31/2024 8:31 AM EDT) Anatomical Region Laterality Modality Mammography 07/31/2024 7:39 AM EDT Narrative 07/31/2024 8:31 AM EDT [facility] Diagnostic Imaging Department [address] [place] [address] Patient: GOMEZROBYN./Age/Sex: 1945 - 79 - F Unit#: [id number] Location/Status: SPDIMAM/REG CLI [facility] Physician: RIN RAGSDALE PA-C Tristan Dexa [...] probability of hip fracture of 1.8%. Code 76212 Dictating Physician: MAURO HAMMOND MD Electronically Signed by: MAURO HAMMOND MD Dic Date/Time: 07/31/24829 Sign date/Time: 07/31/24830 Procedure Note Mauro Hammond MD - 09/06/2024 [facility] Diagnostic Imaging Department [address] [place] [address] Patient: ROBYN GOMEZ /Age/Sex: 1945 - 79 - F Unit#: [id number] Location/Status: SPDIMA/REG CLI Mnemonic/Ordering Site: [facility] Ordering [...] density of the femurs bilaterally is 1.040 gm/rt7tvxdc is 103% of that of young normals [...] probability of hip fracture of 1.8%. Code 06513 Dictating Physician: MAURO HAMMOND MD Electronically Signed by: MAURO HAMMOND MD Dic Date/Time: 07/31/24 0830 Sign date/Time: 07/31/24 0831 Rin HORNER IMG BI PROCEDURES Fin al Result * Stool Based Tests (FOBT/FIT) (03/09/2023) [facility] Colorectal Cancer Screening: Stool Based Tests No interpretation , abstracted Historical Provider HEALTH MAINTENANCE Final Result * Hepatitis C Screening (06/13/2015) [facility] Hepatitis C Screening abstracted Historical Provider HEALTH MAINTENANCE Final Result from Last 3 Months or Most Recently Relevant to Health Maintenance Insurance [employer] Care Teams Flatcar Whacker Relationship Specialty Start Date End Date Elizabeth Mcneal MD [address] [place] [address] PCP - General Internal Medicine 12/14/24
== END 2025-07-24 13:24 | disposition home or self-care (01) ==
LOC: HO.HWS 12:50
PROVIDERS: PCP Internal Medicine; Visit Provider Obstetrics & Gynecology
DX: N95.0 Postmenopausal bleeding (principal)
CPT/HCPCS: 58100

== ENCOUNTER 2025-08-01 08:37 | Outpatient (AMB) | payer OTHER, SELFPAY ==
--- NOTE | 2025-08-01 08:43 | MHC.OFFVIS ---
Vital Signs 08/01/25 08:48 Height 5 ft 3 in Weight 183 lb BMI 32.4 BP 150/64 H Intake Visit Reasons: EMB follow up Satellite Installation Technician Required: No Information Interpreted: non-clinical & clinical Assistant Inventory Manager: Assistant Inventory Manager Present Accompanied by: Self / Same As Patient Allergies bee pollen (bees) Allergy (Mild, Verified 08/01/25 08:48) Swelling Is last menstrual period known: Yes Last menstrual period: 09/19/20 Post menopausal: No Patient : No Do you need a note to return to daycare/school/sports/work: Yes (for surgery on wednesday) HPI Comments Details: The patient is presenting after endometrial biopsy for postmenopausal bleeding. The patient has no complaints, no vaginal bleeding, no feverishness chills or abdominal pain. The endometrial biopsy done on 07/25/2025, the pathology report showed the following: Endometrium, biopsy: Fragments of endometrial polyp with focal crowded glands, strips of benign atrophic endometrium, benign endocervical glandular mucosa, and scant benign squamous epithelium (see comment). Comment: The findings in the current specimen are not sufficient for an unequivocal diagnosis of atypical hyperplasia/endometrioid intraepithelial neoplasia, but atypia cannot be completely excluded. Consider follow up sampling in 4-6 months, or earlier if there are clinical concerns Last co testing in 07/07/2025 was negative 07/20/2025 pelvic ultrasound showed the following: Uterus: The uterus is anteverted and measures 6.9 x 2.5 x 4.1 cm. The cervix has a normal appearance. There are nabothian cysts present. The double wall endometrial thickness is 15 mm. It is diffusely thickened. The uterus is smooth in contour and has normal myometrial echogenicity. No visible fibroid. Adnexa: Ovaries could not be visualized. There is no pelvic ascites or fluid collection. There are no adnexal masses present. [facility] Medical History Hypertension Social History Household Members: Spouse Housing: House Alcohol intake: current Comment: socially Patient Tobacco Use Status: Never used Tobacco Current occupational status: retired Sexual orientation: Straight/Heterosexual Gender identity: Female Female Reproductive History Menstrual Age of Menarche: 15 Date of last menstrual period: 09/19/20 Total pregnancies: 2 Full term: 2 Review of Systems Card Reports as per HPI and Reports no additional complaints Resp Reports as per HPI and Reports no additional complaints GI Reports as per HPI and Reports no additional complaints Reports as per HPI Physical Exam Vital Signs: Last Vital Signs BP 150/64 H 08/01/25 08:48 BMI result Body Mass Index 32.4 Const General: cooperative, healthy appearing and comfortable Resp Effort & Inspection: normal respiratory effort Auscultation: clear to auscultation bilaterally Percussion: percussion normal Cardio Palpation: normal PMI Rate: regular rate Rhythm: regular rhythm Heart sounds: no murmurs and no rubs Peripheral pulses: Peripheral pulses 2+ throughout GI Inspection: Yes normal to inspection Palpation (GI): Soft to palpation, nontender, no guarding, not rigid and No hepatosplenomegaly present Percussion: Yes normal to percussion Auscultation: normal bowel sounds Rectal Exam - Female: deferred Assessment & Plan Assessment & Plan (1) Postmenopausal bleeding: Comment: Polyp with focal Gland crowding Code(s): N95.0 - Postmenopausal bleeding Category: Medical Plan: Discussed with the patient the results of the pathology showing Fragments of endometrial polyp with focal crowded glands, strips of benign atrophic endometrium, benign endocervical glandular mucosa, and scant benign squamous epithelium Recommended hysteroscopy D&C possible polypectomy/myomectomy Discussed with the patient the procedure , all benefits and risks including but not limited to inability to complete the procedure , insufficient endometrial tissue for a complete evaluation of the endometrial cavity , bleeding, infection, possible need for blood transfusion with all its risk ( HIV,syphilis, Hepatitis, anaphylaxis shock, others..), injury to bladder, rectum, possible need for laparoscopy/laparotomy or hysterectomy. The patient verbalized understanding and signed the consent. Instructions given the patient to stay NPO after midnight the day prior to the procedure and to take only amlodipine and lisinopril with a small sip of water the morning of the surgical procedure and to schedule a 2 week postoperative appointment Coding Level of Care Code Est Pt Level 3 (24406) Diagnoses Postmenopausal bleeding N95.0
[2025-08-01 08:48] VITALS: BP 150/64; BMI 32.4
--- OUTSIDE RECORDS SUMMARY | 2025-08-01 09:57 | XMS_ITS | Clinical Summary ---
Author Organization [address] Address [address] [place] [address] [place], [place] Phone Care Team Providers Care Apartment Manager Name Role Phone Elizabeth Mcneal MD Primary Care Provider [phone] Allergies No known active allergies Medications lisinopriL [...] context of patient's family history CAD and GA. I discussed Current concept linking hypercholesteremia with [...] - 06/20/2025 11:59 PM EDT Hospital Encounter [address] [phone] Routine general medical examination at a health care facility; Neck pain Discharge Disposition: Home or Self Care 06/20/2025 2:00 PM EDT Office Visit Adult Medicine [address] [phone] Elizabeth Mcneal MD Routine general medical examination [...] for your loved ones. For example, child care supervisor or elderly care for an older adult? [...] 9:30 AM EST Office Visit Adult Medicine [address] [phone] Elizabeth Mcneal MD 4 [place], [place] 06/27/2026 3:00 PM EDT Office Visit Adult [address] [phone] Elizabeth Mcneal MD 4 [place], [place] Health Maintenance Due Date Last Done [...] Hypercholesterolemia Encounter for screening for cardiovascular disorders [facility] DEXA AXIAL SKELETON Routine 07/31/2024 [...] Signed Date: 06/21/2025 09:22 ET Workstation ID: [id number] Transcribed By: Self Edit Transcribed Date: 06/21/2025 [...] Signed Date: 06/21/2025 09:22 ET Workstation ID: [id number] Transcribed By: Self Edit Transcribed Date: 06/21/2025 09:17 ET us Elizabeth Mcneal MD IMG XR PROCEDURES Final Res ult * (ABNORMAL) Lipid panel with reflex to direct LDL (01/01/2025 8:40 AM EST) Cholesterol 211(H) 0 - 200 mg/dL LAB CHEMISTRY METHOD 01/01/2025 12:20 PM EST [facility] Triglycerides 120 0 - 150 mg/dL LAB CHEMISTRY METHOD 01/01/2025 12:20 PM EST [facility] HDL 64 >=40 mg/dL LAB CHEMISTRY METHOD 01/01/2025 12:20 PM EST [facility] LDL Calculated 123(H) 0 - 100 mg/dL LAB CHEMISTRY METHOD 01/01/2025 12:20 PM [facility] VLDL Cholesterol Darren 24 mg/dL LAB CHEMISTRY METHOD 01/01/2025 12:20 PM [facility] Non HDL Chol. (LDL+VLDL) 147(H) <145 mg/dL LAB CHEMISTRY METHOD 01/01/2025 12:20 PM [facility] Chol/HDL Ratio 3.3 0.0 - 4.4 LAB CHEMISTRY METHOD 01/01/2025 12:20 PM [facility] Blood Venous blood specimen / Unknown Venipuncture / Unknown 01/01/2025 8:40 AM EST 01/01/2025 8:40 AM EST Roxane Savage DRILL PRESS SET UP OPERATOR RADIAL LAB BLOOD ORDERABLES Final R esult [facility] [address] [place] [address], * Basic metabolic panel (01/01/2025 8:40 AM EST) Sodium 139 133 - 145 mmol/L LAB CHEMISTRY METHOD 01/01/2025 12:19 PM [facility] Potassium 4.5 3.5 - 5.5 mmol/L LAB CHEMISTRY METHOD 01/01/2025 12:19 PM [facility] Chloride 106 96 - 110 mmol/L LAB CHEMISTRY METHOD 01/01/2025 12:19 PM [facility] CO2 27 21 - 32 mmol/L LAB CHEMISTRY METHOD 01/01/2025 12:19 PM [facility] Anion Gap 6 3 - 11 LAB CHEMISTRY METHOD 01/01/2025 12:19 PM [facility] Glucose 95 70 - 100 mg/dL LAB CHEMISTRY METHOD 01/01/2025 12:19 PM [facility] BUN 18 5 - 25 mg/dL LAB CHEMISTRY METHOD 01/01/2025 12:19 PM [facility] Creatinine 0.69 0.50 - 1.10 mg/dL LAB CHEMISTRY METHOD 01/01/2025 12:19 PM EST [facility] eGFR 90 >=60 mL/min/1. 73m2 LAB CHEMISTRY METHOD 01/01/2025 12:19 PM EST [facility] Comment:Calculation based on the Chronic Kidney Disease Epidemiology Collaboration (CKD-EPI) equation refit without adjustment for race. BUN/Creatinine Ratio 26.1 LAB CHEMISTRY METHOD 01/01/2025 12:19 PM EST [facility] Calcium 9.3 8.5 - 10.5 mg/dL LAB CHEMISTRY METHOD 01/01/2025 12:19 PM EST [facility] Blood Venous blood specimen / Unknown Venipuncture / Unknown 01/01/2025 8:40 AM EST 01/01/2025 8:40 AM EST Roxane Savage DRILL PRESS SET UP OPERATOR RADIAL LAB BLOOD ORDERABLES Final R esult [facility] [address] [place] [address], * TRISTAN DEXA AXIAL SKELETON (07/31/2024 8:31 AM EDT) Anatomical Region Laterality Modality Mammography 07/31/2024 7:39 AM EDT Narrative 07/31/2024 8:31 AM EDT [facility] Diagnostic Imaging Department [address] [place] [address] Patient: GOMEZROBYN./Age/Sex: 1945 - 79 - F Unit#: [id number] Location/Status: SPDIMAM/REG CLI [facility] Order[facility] Physician: RIN RAGSDALE PA-C Tristan Dexa [...] probability of hip fracture of 1.8%. Code 33966 Dictating Physician: MAURO HAMMOND MD Electronically Signed by: MAURO HAMMOND MD Dic Date/Time: 07/31/24829 Sign date/Time: 07/31/24830 Procedure Note Mauro Hammond MD - 09/06/2024 [facility] Diagnostic Imaging Department [address] [place] [id number] Patient: ROBYN GOMEZ /Age/Sex: 1945 - 79 - F Unit#: [id number] Location/Status: SPDIMA/REG CLI Mnemonic/Ordering Site: [facility]DEXAAX/[facility]AM Ordering [...] density of the femurs bilaterally is 1.040 gm/uw9kdyow is 103% of that of young normals [...] probability of hip fracture of 1.8%. Code 57503 Dictating Physician: MAURO HAMMOND MD Electronically Signed by: MAURO HAMMOND MD Dic Date/Time: 07/31/24 0830 Sign date/Time: 07/31/24 0831 Rin HORNER IMG BI PROCEDURES Fin al Result * Stool Based Tests (FOBT/FIT) (03/09/2023) [facility] Colorectal Cancer Screening: Stool Based Tests No interpretation , abstracted Historical Provider HEALTH MAINTENANCE Final Result * Hepatitis C Screening (06/13/2015) [facility] Hepatitis C Screening abstracted Historical Provider HEALTH MAINTENANCE Final Result from Last 3 Months or Most Recently Relevant to Health Maintenance Insurance [employer] Care Teams Apartment Manager Relationship Specialty Start Date End Date Elizabeth Mcneal MD [address] [place] [address] PCP - General Internal Medicine 12/14/24
== END 2025-08-01 09:32 | disposition home or self-care (01) ==
LOC: HO.HWS 08:37
PROVIDERS: PCP Internal Medicine; Visit Provider Obstetrics & Gynecology
DX: N95.0 Postmenopausal bleeding (principal)
CPT/HCPCS: 99213

== ENCOUNTER 2025-08-06 11:22 | Day surgery (SDC) | payer MEDICARE, SELFPAY ==
--- NOTE | 2025-08-02 14:59 | P.CONAN_ITS ---
Documented by User: Kaykay Rodriguez NP 08/02/25 15:00 HPI - Anesthesia Eval Consult details Narrative: 80yo F for D&C Hysteroscopy,possible myomectomy,possible polypectomy PMFSH Active Problems Active Problems: All Active Problems Postmenopausal bleeding (Acute) Past Medical History Medical History Hypertension Surgical History Surgical History History of colonoscopy Social History Social History Household Members: Spouse Housing: House Are you a primary career development manager to a significant other at home: No Do you presently have visiting nurse or other home services: No Alcohol intake: current Alcohol intake frequency: holidays/special occasions only Comment: socially Patient Tobacco Use Status: Never used Tobacco Use of substances other than those prescribed or required for medical reasons: No Have you been hit, kicked, punched, or otherwise hurt by someone within the past year? If so, by whom?: No Are you DNR?: No Advance Directives: No Advance Directives Information Provided: Yes Patient : No : No Poor oral hygiene: No Current occupational status: retired Sexual orientation: Straight/Heterosexual Gender identity: Female Meds Allergies Allergy/AdvReac Type Severity Reaction Status Date / Time bee pollen (bees) Allergy Mild Swelling Verified 08/06/25 11:55 Home Medications ?Medication ?Instructions ?Recorded ?Confirmed ?Last Taken ?Type amlodipine 5 mg tablet 5 mg PO DAILY 07/17/2508/0608/06/25 History cyclobenzaprine 5 mg tablet 5 mg PO BEDTIME PRN muscle spasm 07/17/25 08/06/25 Unknown History lisinopril 20 mg tablet 20 mg PO DAILY 07/17/2507/23 Unknown History mirtazapine 7.5 mg tablet 7.5 mg PO BEDTIME 07/17/25 0 08/06/25 Unknown History Assessment and Plan Assessment Anesthesia Assessment: Chart Reviewed Documented by User: Milton Rendon MD 08/06/25 13:07 [facility] Past Medical History Medical History Hypertension Functional capacity: independent ambulation Family History Family history of problems with anesthesia: No Surgical History Surgical History History of colonoscopy History of Problems with Anesthesia: No Social History Social History Household Members: Spouse Housing: House Are you a primary career development manager to a significant other at home: No Do you presently have visiting nurse or other home services: No Alcohol intake: current Alcohol intake frequency: holidays/special occasions only Comment: socially Patient Tobacco Use Status: Never used Tobacco Use of substances other than those prescribed or required for medical reasons: No Have you been hit, kicked, punched, or otherwise hurt by someone within the past year? If so, by whom?: No Are you DNR?: No Advance Directives: No Advance Directives Information Provided: Yes Patient : No : No Poor oral hygiene: No Current occupational status: retired Sexual orientation: Straight/Heterosexual Gender identity: Female Meds Allergies Allergy/AdvReac Type Severity Reaction Status Date / Time bee pollen (bees) Allergy Mild Swelling Verified 08/06/25 11:55 Home Medications ?Medication ?Instructions ?Recorded ?Confirmed ?Last Taken ?Type amlodipine 5 mg tablet 5 mg PO DAILY 07/17/2508/0608/06/25 History cyclobenzaprine 5 mg tablet 5 mg PO BEDTIME PRN muscle spasm 07/17/25 08/06/25 Unknown History lisinopril 20 mg tablet 20 mg PO DAILY 07/17/2507/23 Unknown History mirtazapine 7.5 mg tablet 7.5 mg PO BEDTIME 07/17/25 0 08/06/25 Unknown History Exam Exam Date and Time: 08/06/2025 Airway Mallampati Class: II TM Dist: >3cm Neck ROM: Full Heart: rrr Lungs: cta Other: normal Assessment and Plan Final Anesthetic Review Family History of Problems with Anesthesia: No History of Problems with Anesthesia: No NPO: Yes ASA Class: II Final Preanesthetic Review: No Changes in Pt Med Stat, Meds/Allgs Chart Re viewed, Consent Obtained/Reviewed and Anes Risks/Benef Reviewed Patient Risk: Low Procedure Risk: Low Anesthetic Plan Anesthetic Plan: GA Disposition: Standard PACU
--- OUTSIDE RECORDS SUMMARY | 2025-08-02 17:57 | XMS_ITS | Clinical Summary ---
Author Organization [facility] [address] [place] [address] [place] [phone] Phone Care Team Providers Care Storage Battery Tester Name Role Phone Elizabeth Mcneal MD Primary Care Provider Allergies No known active allergies Medications lisinopriL [...] context of patient's family history CAD and CO. I discussed Current concept linking hypercholesteremia with [...] - 06/20/2025 11:59 PM EDT Hospital Encounter [address] [phone] Routine general medical examination at a health care facility; Neck pain Discharge Disposition: Home or Self Care 06/20/2025 2:00 PM EDT Office Visit Adult Medicine [address] [phone] Elizabeth Mcneal MD Routine general medical examination [...] 9:30 AM EST Office Visit Adult Medicine [address] [phone] Elizabeth Mcneal MD 4 [place], [place] 06/27/2026 3:00 PM EDT Office Visit Adult [address] [phone] Elizabeth Mcneal MD [address] [place], [place] Health Maintenance Due Date Last Done [...] Hypercholesterolemia Encounter for screening for cardiovascular disorders [facility] DEXA AXIAL SKELETON Routine 07/31/2024 8:31 AM [...] Signed Date: 06/21/2025 09:22 ET Workstation ID: [id number] Transcribed By: Self Edit Transcribed Date: 06/21/2025 [...] Signed Date: 06/21/2025 09:22 ET Workstation ID: [id number] Transcribed By: Self Edit Transcribed Date: 06/21/2025 09:17 ET us Elizabeth Mcneal MD IMG XR PROCEDURES Final Res ult * (ABNORMAL) Lipid panel with reflex to direct LDL (01/01/2025 8:40 AM EST) Cholesterol 211(H) 0 - 200 mg/dL LAB CHEMISTRY METHOD 01/01/2025 12:20 PM EST [facility] Triglycerides 120 0 - 150 mg/dL LAB CHEMISTRY METHOD 01/01/2025 12:20 PM EST [facility] HDL 64 >=40 mg/dL LAB CHEMISTRY METHOD 01/01/2025 12:20 PM EST [facility] LDL Calculated 123(H) 0 - 100 mg/dL LAB CHEMISTRY METHOD 01/01/2025 12:20 PM [facility] VLDL Cholesterol Darren 24 mg/dL LAB CHEMISTRY METHOD 01/01/2025 12:20 PM [facility] Non HDL Chol. (LDL+VLDL) 147(H) <145 mg/dL LAB CHEMISTRY METHOD 01/01/2025 12:20 PM [facility] Chol/HDL Ratio 3.3 0.0 - 4.4 LAB CHEMISTRY METHOD 01/01/2025 12:20 PM [facility] Blood Venous blood specimen / Unknown Venipuncture / Unknown 01/01/2025 8:40 AM EST 01/01/2025 8:40 AM EST us Roxane Savage SIDING APPLICATOR LAB BLOOD ORDERABLES Final R esult [facility] [address] [place] [address], * Basic metabolic panel (01/01/2025 8:40 AM EST) Sodium 139 133 - 145 mmol/L LAB CHEMISTRY METHOD 01/01/2025 12:19 PM [facility] Potassium 4.5 3.5 - 5.5 mmol/L LAB CHEMISTRY METHOD 01/01/2025 12:19 PM [facility] Chloride 106 96 - 110 mmol/L LAB CHEMISTRY METHOD 01/01/2025 12:19 PM [facility] CO2 27 21 - 32 mmol/L LAB CHEMISTRY METHOD 01/01/2025 12:19 PM [facility] Anion Gap 6 3 - 11 LAB CHEMISTRY METHOD 01/01/2025 12:19 PM [facility] Glucose 95 70 - 100 mg/dL LAB CHEMISTRY METHOD 01/01/2025 12:19 PM [facility] BUN 18 5 - 25 mg/dL LAB CHEMISTRY METHOD 01/01/2025 12:19 PM EST [facility] Creatinine 0.69 0.50 - 1.10 mg/dL LAB CHEMISTRY METHOD 01/01/2025 12:19 PM EST [facility] eGFR 90 >=60 mL/min/1. 73m2 LAB CHEMISTRY METHOD 01/01/2025 12:19 PM EST [facility] Comment:Calculation based on the Chronic Kidney Disease Epidemiology Collaboration (CKD-EPI) equation refit without adjustment for race. BUN/Creatinine Ratio 26.1 LAB CHEMISTRY METHOD 01/01/2025 12:19 PM [facility] Calcium 9.3 8.5 - 10.5 mg/dL LAB CHEMISTRY METHOD 01/01/2025 12:19 PM [facility] Blood Venous blood specimen / Unknown Venipuncture / Unknown 01/01/2025 8:40 AM EST 01/01/2025 8:40 AM EST Roxane Savage SIDING APPLICATOR LAB BLOOD ORDERABLES Final R esult [facility] [address] [place] [address], * TRISTAN DEXA AXIAL SKELETON (07/31/2024 8:31 AM EDT) Anatomical Region Laterality Modality Mammography 07/31/2024 7:39 AM EDT Narrative 07/31/2024 8:31 AM EDT [facility] Diagnostic Imaging Department [address] [place] [address] Patient: ROBYN GOMEZ./Age/Sex: 1945 - 79 - F Unit#: [id number] [facility]Ordering Site: [facility]/SP[facility] Ordering Physician: RIN [...] probability of hip fracture of 1.8%. Code 52489 Dictating Physician: MAURO HAMMOND MD Electronically Signed by: MAURO HAMMOND MD Dic Date/Time: 07/31/24829 Sign date/Time: 07/31/24830 Procedure Note Mauro Hammond MD - 09/06/2024 [facility] Diagnostic Imaging Department [address] [place] [address] Patient: ROBYN GOMEZ /Age/Sex: 1945 - 79 - F Unit#: [id number] Location/Status: SPDIMA/REG CLI Mnemonic/Ordering Site: [facility]DEXAAX/SPMAM Ordering [...] density of the femurs bilaterally is 1.040 gm/os1iahxt is 103% of that of young normals [...] probability of hip fracture of 1.8%. Code 27503 Dictating Physician: MAURO HAMMOND MD Electronically Signed by: MAURO HAMMOND MD Dic Date/Time: 07/31/24 0830 Sign date/Time: 07/31/24 0831 Rin HORNER IMG BI PROCEDURES Fin al Result * Stool Based Tests (FOBT/FIT) (03/09/2023) [facility] Colorectal Cancer Screening: Stool Based Tests No interpretation , abstracted Historical Provider HEALTH MAINTENANCE Final Result * Hepatitis C Screening (06/13/2015) [facility] Hepatitis C Screening abstracted Historical Provider HEALTH MAINTENANCE Final Result from Last 3 Months or Most Recently Relevant to Health Maintenance Insurance [employer] Care Teams Storage Battery Tester Relationship Specialty Start Date End Date Elizabeth Mcneal MD [address] [place] [address] PCP - General Internal Medicine 12/14/24
[2025-08-06 12:02] VITALS: BP 159/57; PULSE 69; RESP 12; TEMP 36.8; O2SAT 97; BMI 32.0
[2025-08-06] MEDS: Lactated Ringers 1,000 ML 100 ML IVCONT (12:18)
--- NOTE | 2025-08-06 13:07 | MHC.SHP ---
Pre-Procedural Eval Section A - 24 Hr Update-Section A only Date of Service: 08/06/25 The patient is an INPATIENT: No Changes since office visit: No Cold of Flu in the past 2 weeks, No New Medical Problems, No Changes in Medication and No Patient answered all questions The patient has been examined within 24 hours of the surgical procedure. The History & Physical has been completed within 30 days and I have reviewed it.: Yes Section B - Complete if H&P > 30 days Chief Complaint: Postmenopausal bleeding Allergies: Allergies Allergy/AdvReac Type Severity Reaction Status Date / Time bee pollen (bees) Allergy Mild Swelling Verified 08/06/25 11:55 Plan Diagnosis/Plan: Unchanged I have reviewed the history and physical and performed a pertinent physical examination on my patient. No changes have occurred unless specified. Time Spent With Patient Time: Total time managing care of this patient today ____ minutes.
[2025-08-06 13:55] VITALS: BP 120/80; PULSE 62; RESP 18; TEMP 36.1; O2SAT 93
--- NOTE | 2025-08-06 13:56 | P.OP_ITS ---
Operative Note Operative Note Date of Service: 08/06/25 Narrative: Preop Diagnosis: Postmenopausal bleeding, Endometrial polyp with crowded glands by EMB pathology Operation: Diagnostic Hysteroscopy, Dilataion & Curettage and polypectomy Post Op Diagnosis: Endometrial Polyp QBL: Minimal Anesthesia: GLMA Surgeon: Tadeo Gregory MD Floor Service Worker Spring: None Complication: None Pathology: Endometrial Scrapings, Endometrial polyp Procedure: The patient was put in the dorsal lithotomy position, scrubbed, and draped in the usual manner. A sterile speculum was inserted in the patient's vagina. The anterior lip of the cervix was grasped with a single tooth tenaculum. The cervix was dilated up to 5 mm, then the scope was inserted in the patient's uterus. Inspection revealed endometrial polyp. The Myosure Reach device was used; it was introduced through the operative channel and polypectomy done with no complications. The scope was then taken out from the uterine cavity, sharp curettings was carried on with minimal to moderate amount of tissues retrieved. At the end of the procedure, all instruments were taken out of the patient uterine and vaginal cavity. The single tooth tenaculum was removed and homeostasis was assured using pressure,. The patient tolerated the procedure well and was transferred to the PACU in a stable condition.
--- NOTE | 2025-08-06 13:56 | PM.OP ---
Brief Operative Note Date of Service: 08/06/25 Pre-op diagnosis: Postmenopausal bleeding, endometrial polyp with crowded glands by EMB pathology Post-op diagnosis: same (Endometrial polyp) Procedure: Hysteroscopy D&C, Polypectomy Surgeon: Tadeo Gregory MD Anesthesia: GLMA Was an Implementation Analyst used for this Procedure?: No Estimated blood loss (mL): 0 Pathology: other (Endometrial Scrapping. Polyp) Condition: stable Disposition: PACU
[2025-08-06 14:00] VITALS: BP 128/57; PULSE 62; RESP 18; TEMP 36.1; O2SAT 93
[2025-08-06 14:15] VITALS: BP 128/54; PULSE 58; RESP 18; O2SAT 93
[2025-08-06 14:30] VITALS: BP 128/54; PULSE 56; RESP 18; O2SAT 93
[2025-08-06 14:49] VITALS: BP 142/57; PULSE 56; RESP 18; TEMP 36.6; O2SAT 96
== END 2025-08-06 15:17 | disposition home or self-care (01) ==
PROVIDERS: PCP Internal Medicine; Visit Provider Obstetrics & Gynecology
PROC: 0UDB8ZZ Extraction of Endometrium, Via Natural or Artificial Opening Endoscopic (ICD-10-PCS; CPT 58558; principal; 2025-08-06 13:00)
DX: N95.0 Postmenopausal bleeding (principal); N84.0 Polyp of corpus uteri; I10 Essential (primary) hypertension; Z79.899 Other long term (current) drug therapy
CPT/HCPCS: 58558; 88305; 88341; 88342; J1100; J2003; J2405; J2704; J3010

== ENCOUNTER → 2025-08-06 11:22 | Outpatient (BNV) | payer MEDICARE, SELFPAY | PROVIDERS: PCP Internal Medicine; Visit Provider Obstetrics & Gynecology | DX: N84.0 Polyp of corpus uteri (principal); N95.0 Postmenopausal bleeding | CPT/HCPCS: 58558 ==

== ENCOUNTER 2025-08-20 09:34 | Outpatient (AMB) | payer MEDICARE, SELFPAY ==
--- NOTE | 2025-08-20 09:39 | A.OFFVIS_ITS ---
Vital Signs 08/20/25 09:44 BP 132/78 Intake Visit Reasons: post op Accompanied by: Spouse Allergies bee pollen (bees) Allergy (Mild, Verified 08/20/25 09:44) Swelling HPI Comments Details: The patient is presenting post hysteroscopy D&C no complaints minimal vaginal bleeding no feverishness chills or abdominal pain. Intraoperative finding= endometrial polyp The pathology showed the following: A. Endometrial polyp, resection: Fragments of benign endometrial polyp with features suggesting chronic endometritis, and many foamy macrophages; no atypia or carcinoma. B. Endometrium, curettage: Strips of benign atrophic endometrium, fragments of benign endometrial polyp, benign endocervical glandular epithelium and benign squamous epithelium; no atypia or carcinoma PFSH Medical History Hypertension Surgical History History of colonoscopy Social History Household Members: Spouse Housing: House Are you a primary care aide to a significant other at home: No Do you presently have visiting nurse or other home services: No Alcohol intake: current Alcohol intake frequency: holidays/special occasions only Comment: socially Patient Tobacco Use Status: Never used Tobacco Current occupational status: retired Sexual orientation: Straight/Heterosexual Gender identity: Female Female Reproductive History Menstrual Age of Menarche: 15 Review of Systems Const All systems reviewed & are unremarkable except as noted in HPI and below Reports as per HPI and Reports no additional complaints GI Reports no additional complaints Reports no additional complaints Physical Exam Vital Signs: Last Vital Signs BP 132/78 08/20/25 09:44 Assessment & Plan Assessment & Plan (1) Postmenopausal bleeding: Comment: Polyp with focal Gland crowding Code(s): N95.0 - Postmenopausal bleeding Category: Medical Plan: Discussed with the patient the results the of the intraoperative finding, and the pathology results. Since pathology of endometrial biopsy showed focal crowding with insufficient criteria for hyperplasia or malignancy, [facility] Gy[facility] Onc referral placed for consult and pathology slide review. All questions answered, the patient verbalized understanding Orders: Referrals Gynecologic Oncology Referral N95.0 - Postmenopausal bleeding Coding Level of Care Code Est Pt Level 3 (11122) Diagnoses Postmenopausal bleeding N95.0
[2025-08-20 09:44] VITALS: BP 132/78
--- OUTSIDE RECORDS SUMMARY | 2025-08-20 10:24 | XMS_ITS | Clinical Summary ---
Author Organization [facility] [address] [place] [address] [place] [phone] Phone Care Team Providers Care Lens Blank Gauger Name Role Phone Elizabeth Mcneal MD Primary Care Provider Allergies No known active allergies Medications lisinopriL (PRINIVIL,ZESTRI L) 20 mg tabletIndication s:Essential hypertension, benign TAKE 1 TABLET (20 MG TOTAL) BY MOUTH ONE TIME EACH DAY 90 tablet 1 5 Active amLODIPine (NORVASC) 5 mg tablet Take 1 tablet (5 mg total) by mouth 1 (one) time each day. 90 tablet 1 5 Active predniSONE (DELTASONE) 20 mg tablet Take 60 mg PO daily for 3 days, then take 40 mg PO daily for 3 days, then 20 mg PO daily for 3 days, then stop 18 tablet 5 Active acetaminophen (Tylenol 8 Hour) 650 mg 8 hr tablet Take 1 tablet (650 mg total) by mouth every 8 (eight) hours if needed for mild pain. Do not crush, chew, or split. 90 tablet 5 Active mirtazapine (REMERON) 7.5 mg tabletIndication s:Insomnia, unspecified,Anxi ety disorder, unspecified TAKE 1 TABLET BY MOUTH EVERY DAY AT BEDTIME NEEDED FOR INSOMNIA 90 tablet 1 5 Active cyclobenzaprine (FLEXERIL) 5 mg tablet Take 1 tablet (5 mg total) by mouth at bedtime as needed for muscle spasms. 30 tablet 5 08/19/20 25 Active Problems Problem Noted Date Diagnosed Date [...] context of patient's family history CAD and [place]. I discussed Current concept linking hypercholesteremia with [...] - 06/20/2025 11:59 PM EDT Hospital Encounter [address] [phone] Routine general medical examination at a health care facility; Neck pain Discharge Disposition: Home or Self Care 06/20/2025 2:00 PM EDT Office Visit Adult Medicine [address] [phone] Elizabeth Mcneal MD Routine general medical examination at a health care facility (Primary Dx); Osteopenia, unspecified location; Primary hypertension; Hyperlipidemia, unspecified hyperlipidemia type; Postmenopausal bleeding; Neck pain from Last 3 Months Immunizations Immunization Administration Dates Next Due Human Rabies, Human [...] care for your loved ones. For example, children's librarian or elderly care for an older adult? [...] Date Recorded What is your living situation? Unrecognized valu e 06/15/2025 Comments No Sex and Gender Information [...] 12/25/2025 9:30 AM EST Office Visit Adult [address] [phone] Elizabeth Mcneal MD [address] [place], [place] 06/27/2026 3:00 PM EDT Office Visit [address] [phone] Elizabeth Mcneal MD [address] [place] [address] Health Maintenance Due Date Last Done Comments Hypertension/CHF/CAD Annual BMP Blood Test 01/01/2026 01/01/2025, [...] Additional history exists Depression Screening Completed 06/15/2025 Influenza Vaccine Completed 08/16/2025, , 08/07/2024, Additional history exists HIB Vaccines Aged Out No longer eligi [...] EDT Routine general medical examination at a [facility] facility Neck pain BASIC METABOLIC PANEL Routine 01/01/2025 8:40 AM EST Essential hypertension, benign LIPID PANEL WITH REFLEX TO DIRECT LDL Routine 01/01/2025 8:40 AM EST Hypercholesterolemia Encounter for screening for cardiovascular disorders [facility] DEXA AXIAL SKELETON Routine 07/31/2024 8:31 AM EDT Other specified disorders of bone density and structure, other site HM STOOL BASED TEST Routine 03/09/2023 HEPATITIS C [...] Signed Date: 06/21/2025 09:22 ET Workstation ID: [id number] Transcribed By: Self Edit Transcribed Date: 06/21/2025 [...] Signed Date: 06/21/2025 09:22 ET Workstation ID: [id number] Transcribed By: Self Edit Transcribed Date: 06/21/2025 09:17 ET us Elizabeth Mcneal MD IMG XR PROCEDURES Final Res ult * (ABNORMAL) Lipid panel with reflex to direct LDL (01/01/2025 8:40 AM EST) Cholesterol 211(H) 0 - 200 mg/dL LAB CHEMISTRY METHOD 01/01/2025 12:20 PM [facility] Triglycerides 120 0 - 150 mg/dL LAB CHEMISTRY METHOD 01/01/2025 12:20 PM [facility] HDL 64 >=40 mg/dL LAB CHEMISTRY METHOD 01/01/2025 12:20 PM [facility] LDL Calculated 123(H) 0 - 100 mg/dL LAB CHEMISTRY METHOD 01/01/2025 12:20 PM [facility] VLDL Cholesterol Darren 24 mg/dL LAB CHEMISTRY METHOD 01/01/2025 12:20 PM [facility] Non HDL Chol. (LDL+VLDL) 147(H) <145 mg/dL LAB CHEMISTRY METHOD 01/01/2025 12:20 PM [facility] Chol/HDL Ratio 3.3 0.0 - 4.4 LAB CHEMISTRY METHOD 01/01/2025 12:20 PM [facility] Blood Venous blood specimen / Unknown Venipuncture / Unknown 01/01/2025 8:40 AM EST 01/01/2025 8:40 AM EST us Roxane Savage [facility] LAB BLOOD ORDERABLES Final R esult [facility] [address] [place] [address], * Basic metabolic panel (01/01/2025 8:40 AM EST) Sodium 139 133 - 145 mmol/L LAB CHEMISTRY METHOD 01/01/2025 12:19 PM [facility] Potassium 4.5 3.5 - 5.5 mmol/L LAB CHEMISTRY METHOD 01/01/2025 12:19 PM [facility] Chloride 106 96 - 110 mmol/L LAB CHEMISTRY METHOD 01/01/2025 12:19 PM [facility] CO2 27 21 - 32 mmol/L LAB CHEMISTRY METHOD 01/01/2025 12:19 PM [facility] Anion Gap 6 3 - 11 LAB CHEMISTRY METHOD 01/01/2025 12:19 PM [facility] Glucose 95 70 - 100 mg/dL LAB CHEMISTRY METHOD 01/01/2025 12:19 PM [facility] BUN 18 5 - 25 mg/dL LAB CHEMISTRY METHOD 01/01/2025 12:19 PM [facility] Creatinine 0.69 0.50 - 1.10 mg/dL LAB CHEMISTRY METHOD 01/01/2025 12:19 PM [facility] eGFR 90 >=60 mL/min/1. 73m2 LAB CHEMISTRY METHOD 01/01/2025 12:[address] [facility] Comment:Calculation based on the Chronic Kidney Disease Epidemiology Collaboration (CKD-EPI) equation refit without adjustment for race. BUN/Creatinine Ratio 26.1 LAB CHEMISTRY METHOD 01/01/2025 12:[address] [facility] Calcium 9.3 8.5 - 10.5 mg/dL LAB CHEMISTRY METHOD 01/01/2025 12:[address] [facility] Blood Venous blood specimen / Unknown Venipuncture / Unknown 01/01/2025 8:40 AM EST 01/01/2025 8:40 AM EST us Roxane Savage NP LAB BLOOD ORDERABLES Final R esult [facility] [address] [place] [address], * [facility] DEXA AXIAL SKELETON (07/31/2024 8:31 AM EDT) Anatomical Region Laterality Modality Mammography 07/31/2024 7:39 AM EDT Narrative 07/31/2024 8:31 AM EDT [facility] Diagnostic Imaging Department [address] [place] [address] Patient: ROBYN GOMEZ Amirah BurrowsB./Age/Sex: 1945 - 79 - F Unit#: [id number] Location/Status: SPDIMAM/REG CLI Mnemonic/Ordering Site: MAMDEXAAX/SPMAM Ordering [...] probability of hip fracture of 1.8%. Code 55174 Dictating Physician: MAURO HAMMOND MD Electronically Signed by: MAURO HAMMOND MD Dic Date/Time: 07/31/24829 Sign date/Time: 07/31/24830 Procedure Note Mauro Hammond MD - 09/06/2024 [facility] Diagnostic Imaging Department [address] [place] [address] Patient: ROBYN GOMEZ/Age/Sex: 1945 - 79 - F Unit#: [id number] Location/Status: SPDIMAM/REG CLI Mnemonic[facility] Order[facility] Physician: RIN RAGSDALE PA-C [facility] Dexa Axial Skeleton - 07/31/24818 Report Status:Signed [...] density of the femurs bilaterally is 1.040 gm/ds4frnpn is 103% of that of young normals [...] probability of hip fracture of 1.8%. Code 23476 Dictating Physician: MAURO HAMMOND MD Electronically Signed by: MAURO HAMMOND MD Dic Date/Time: 07/31/24829 Sign date/Time: 07/31/24830 Rin HORNER IM BI PROCEDURES Fin al Result * Stool Based Tests (FOBT/FIT) (03/09/2023) [facility] Colorectal Cancer Screening: Stool Based Tests No interpretation , abstracted Historical Provider HEALTH MAINTENANCE Final Result * Hepatitis C Screening (06/13/2015) [facility] Hepatitis C Screening abstracted Historical Provider HEALTH MAINTENANCE Final Result from Last 3 Months or Most Recently Relevant to Health Maintenance Insurance [employer] [place] [employer] Care Teams Lens Blank Gauger Relationship Specialty Start Date End Date Elizabeth Mcneal MD [address] [place] [address] PCP - General Internal Medicine 12/14/24
== END 2025-08-20 10:12 | disposition home or self-care (01) ==
LOC: HO.HWS 09:34
PROVIDERS: PCP Internal Medicine; Visit Provider Obstetrics & Gynecology
DX: N95.0 Postmenopausal bleeding (principal)
CPT/HCPCS: 99213

== ENCOUNTER → 2025-08-20 09:34 | Outpatient (BNVA) | payer MEDICARE, SELFPAY | PROVIDERS: PCP Internal Medicine; Visit Provider Obstetrics & Gynecology | DX: Z98.890 Other specified postprocedural states (principal); N95.0 Postmenopausal bleeding | CPT/HCPCS: 99212 ==